=== PATIENT | female | born 1935 | race Caucasian/White ===

== ENCOUNTER 2018-09-15 11:41 | Emergency (ER) | payer MEDICARE, BC ==
[2018-09-15] MEDS ORDERED: Ondansetron 4 MG/2 ML SDV ONE ×2 (11:57→12:06)
[2018-09-15] MEDS ORDERED: Diltiazem 25 MG/5 ML SDV IVPUSH ONE (12:15)
[2018-09-15] MEDS ORDERED: Diltiazem 50 MG/10 ML SDV IVPUSH ONE (12:15)
[2018-09-15] MEDS ORDERED: Sodium Chloride 0.9% 1,000 ML IV SCH (12:15)
--- NOTE | 2018-09-15 12:32 | EDM.PDOC ---
ED HPI GENERAL MEDICAL PROBLEM - General Chief Complaint: General Stated Complaint: NAUSEA VOMITING Time Seen by Provider: 09/15/18 11:42 Source of Information: Reports: Patient, Family History Limitations: Reports: No Limitations - History of Present Illness INITIAL COMMENTS - FREE TEXT/NARRATIVE: This patient presents to the Ed in the care of daughter with a complaint of dizziness. She was comfortable at home and got up from her chair when she became dizzy. She also had some nausea at that time and subsequently had some vomiting as well. She was noted on arrival to be in atrial fibrillation. She had been well at home recently without fever, cough, nausea, and vomiting. Onset: Today, Sudden Location: Reports: Other (dizziness) Improves with: Reports: None Worsens with: Reports: Movement Associated Symptoms: Reports: Confusion, Diaphoresis - Related Data Allergies Allergy/AdvReac Type Severity Reaction Status Date / Time codeine Allergy Cannot Verified 04/04/15 21:32 Remember Home Meds: Home Meds NK [No Known Home Meds] 03/10/15 [History] ED ROS GENERAL - Review of Systems Review Of Systems: See Below Constitutional: Reports: No Symptoms, Diaphoresis. Denies: Fever HEENT: Reports: No Symptoms Respiratory: Reports: No Symptoms Cardiovascular: Reports: Blood Pressure Problem, Dyspnea on Exertion. Denies: Chest Pain, Edema, Syncope Endocrine: Reports: No Symptoms GI/Abdominal: Reports: Nausea, Vomiting. Denies: Decreased Appetite : Reports: No Symptoms Musculoskeletal: Reports: No Symptoms Skin: Reports: No Symptoms, Pallor, Diaphoresis Neurological: Reports: Dizziness ED EXAM, GENERAL - Physical Exam Exam: See Below Exam Limited By: No Limitations General Appearance: Alert, WD/WN, No Apparent Distress Eye Exam: Bilateral Eye: PERRL Ears: Normal External Exam Nose: Normal Inspection Throat/Mouth: Normal Inspection Head: Atraumatic, Normocephalic Neck: Supple, Non-Tender, Full Range of Motion Respiratory/Chest: Lungs Clear, Normal Breath Sounds, No Accessory Muscle Use, Chest Non-Tender Cardiovascular: Normal Peripheral Pulses (irregular rythmn with ectopy), No Edema GI/Abdominal: Soft, Non-Tender, No Organomegaly, Other (hypoactive bowel sounds) Extremities: Normal Range of Motion Neurological: Alert, Oriented Psychiatric: Normal Affect Skin Exam: Warm, Dry Course - Orders/Labs/Meds Orders: Active Orders 24 hr Category Date Time Status BASIC METABOLIC PANEL,BMP [CHEM] Stat Lab 09/15/18 12:23 Ordered CBC WITH AUTO DIFF [HEME] Stat Lab 09/15/18 12:23 Ordered MG [MAGNESIUM] [CHEM] Stat Lab 09/15/18 12:18 Ordered TROPONIN I [CHEM] Stat Lab 09/15/18 12:23 Ordered Sodium Chloride 0.9% [Normal Saline] 1,000 ml Med 09/15/18 12:15 Active IV ASDIRECTED Medication Orders Sodium Chloride (Normal Saline) 1,000 mls @ 125 mls/hr IV ASDIRECTED MARY Meds: Medications Generic Name Dose Route Start Last Admin Trade Name Freq PRN Reason Stop Dose Admin Sodium Chloride 1,000 mls @ 125 mls/hr 09/15/18 12:15 Normal Saline IV ASDIRECTED MARY Discontinued Medications Generic Name Dose Route Start Last Admin Trade Name Freq PRN Reason Stop Dose Admin Diltiazem HCl 20 mg 09/15/18 12:15 Diltiazem IVPUSH 09/15/18 12:16 ONETIME ONE Diltiazem HCl 27 mg 09/15/18 12:15 Cardizem IVPUSH 09/15/18 12:16 ONETIME ONE Ondansetron HCl Confirm 09/15/18 11:57 Zofran Administered 09/15/18 11:58 Dose 4 mg .ROUTE .STK-MED ONE Ondansetron HCl Confirm 09/15/18 12:06 Zofran Administered 09/15/18 12:07 Dose 4 mg .ROUTE .STK-MED ONE - Re-Assessments/Exams Free Text/Narrative Re-Assessment/Exam: 09/15/18 12:37 This patient presents to the ED for evaluation of dizziness. History and clinical findings are most consistent with atrial fibrillation. She was given an initial dose of Diltazem of 0.25 mg/kg (20 mg) which did not affect the rhythm. The Diltiazem was repeated at 0.35 mg/kg (27 mg) which did not affect her rhythm. A Diltazem drip of 10 mg/ hours was initiated along with maintenance fluids. I contacted [facility] and spoke with Dr. Barnett from Cardiology who did agree to accept this patient in transfer and to direct definitive care. Arrangements were made for ACLS are transfer with [facility]. 09/15/18 12:39 Departure - Departure Time of Disposition: 13:20 Disposition: DC/Tfer to Acute Hospital 02 Condition: Fair Clinical Impression: Atrial fibrillation - Discharge Information *PRESCRIPTION DRUG MONITORING PROGRAM REVIEWED*: Not Applicable *COPY OF PRESCRIPTION DRUG MONITORING REPORT IN PATIENT OSVALDO: Not Applicable Referrals: PCP,None [Primary Care Provider] - - My Orders Last 24 Hours: My Active Orders 09/15/18 12:15 Sodium Chloride 0.9% [Normal Saline] 1,000 ml IV ASDIRECTED 09/15/18 12:18 MG [MAGNESIUM] [CHEM] Stat 09/15/18 12:23 BASIC METABOLIC PANEL,BMP [CHEM] Stat CBC WITH AUTO DIFF [HEME] Stat TROPONIN I [CHEM] Stat - Assessment/Plan Last 24 Hours: My Active Orders 09/15/18 12:15 Sodium Chloride 0.9% [Normal Saline] 1,000 ml IV ASDIRECTED 09/15/18 12:18 MG [MAGNESIUM] [CHEM] Stat 09/15/18 12:23 BASIC METABOLIC PANEL,BMP [CHEM] Stat CBC WITH AUTO DIFF [HEME] Stat TROPONIN I [CHEM] Stat
[2018-09-15] MEDS ORDERED: Diltiazem 100 MG in Sodium Chloride 0.9% 100 ML IV SCH (12:45)
[2018-09-15] MEDS ORDERED: Promethazine 25 MG/ML SDV ONE (13:06)
[2018-09-15] MEDS ORDERED: LORazepam 2 MG/ML SDV IVPUSH ONE (13:25)
== END 2018-09-15 13:55 ==
LOC: LB.ED 11:41
DX: I48.91 Unspecified atrial fibrillation (principal); Z88.5 Allergy status to narcotic agent
CPT/HCPCS: 36415; 80048; 83735; 84484; 85025; 93005; 96374; 96375; 99284-25; J2405; J2550; J3490; J7030

== ENCOUNTER 2019-01-27 03:39 | Emergency (ER) | payer MEDICARE, BC ==
[2019-01-27] MEDS ORDERED: Sodium Chloride 0.9% 10 ML Syringe FLUSH PRN (04:41)
[2019-01-27] MEDS: Metoprolol Tartrate 25 MG Tab PO ONE (05:08)
[2019-01-27] MEDS: LORazepam 0.5 MG Tab PO ONE (05:19)
--- NOTE | 2019-01-27 05:20 | EDM.PDOC ---
ED HPI GENERAL MEDICAL PROBLEM - General Chief Complaint: General Stated Complaint: SHORTNESS OF BREATH, HIGH BP Time Seen by Provider: 01/27/19 04:50 Source of Information: Reports: Patient History Limitations: Reports: No Limitations - History of Present Illness INITIAL COMMENTS - FREE TEXT/NARRATIVE: This is a 83yo F brought in by EMS as she felt short of breath and couldn't feel her heartbeat. She denies chest pain but states she has a history of CT diagnosed back in September this year. She states she is on Xarelto and notices a change of he BM and urination. She states she couldn't feel her heartbeat and called her neighbor Ana who is a retired practitioner. She states she felt she needed someone next to her. She tried to do things to feel her heartbeat but she couldn't feel it. She denies any weakness, speech changes or visual changes (does have macular degeneration). Patient denies any prior episodes of this in the past. Onset: Sudden Duration: Other (Patient states her main concern was that she could not feel her heart...she doesn't feel it at this time as well on examination and history) Location: Reports: Generalized Improves with: Reports: None Worsens with: Reports: None Associated Symptoms: Reports: No Other Symptoms - Related Data Allergies Allergy/AdvReac Type Severity Reaction Status Date / Time codeine Allergy Cannot Verified 01/27/19 05:23 Remember Home Meds: Home Meds Metoprolol Tartrate 12.5 mg PO BID 01/27/19 [History] Rivaroxaban [Xarelto] 20 mg PO DAILY 01/27/19 [History] ED ROS GENERAL - Review of Systems Review Of Systems: ROS reveals no pertinent complaints other than HPI. ED EXAM, GENERAL - Physical Exam Exam: See Below Exam Limited By: No Limitations General Appearance: Alert, WD/WN, Anxious Eye Exam: Bilateral Eye: EOMI, PERRL Ears: Normal External Exam Nose: Normal Inspection Throat/Mouth: Normal Inspection Head: Atraumatic, Normocephalic Neck: Normal Inspection, Supple, Non-Tender Respiratory/Chest: No Respiratory Distress Cardiovascular: Normal Peripheral Pulses Peripheral Pulses: 2+: Dorsalis Pedis (L), Dorsalis Pedis (R) GI/Abdominal: Normal Bowel Sounds Back Exam: Normal Inspection Extremities: Normal Inspection Neurological: Alert, Oriented, CN II-XII Intact, Normal Cognition, Normal Gait, Normal Reflexes, No Motor/Sensory Deficits Psychiatric: Normal Affect, Anxious Skin Exam: Warm, Dry, Intact Course - Vital Signs Last Recorded V/S: Last Vital Signs Temp 36.7 C 01/27/19 04:50 Pulse 65 01/27/19 06:28 Resp 18 01/27/19 06:28 BP 134/62 01/27/19 06:28 Pulse Ox 97 01/27/19 06:28 - Orders/Labs/Meds Orders: Active Orders 24 hr Category Date Time Status EKG Documentation Completion [RC] ASDIRECTED Care 01/27/19 04:41 Active Peripheral IV Insertion Adult [OM.PC] Routine Oth 01/27/19 04:41 Ordered Labs: Laboratory Tests 01/27/19 01/27/19 Range/Units 04:55 04:55 WBC 6.8 D (4.0-11.0) K/uL RBC 4.09 (3.80-5.80) M/uL Hgb 12.9 (11.5-16.5) g/dL Hct 38.9 (37.0-47.0) % MCV 95 (76-96) fL MCH 31.5 (27.0-32.0) pg MCHC 33.2 (31.0-35.0) g/dL RDW 13.7 (11.0-16.0) % Plt Count 172 (150-500) K/uL MPV 10.4 H (6.0-10.0) fL Neut % (Auto) 69.8 (45.0-70.0) % Lymph % (Auto) 15.8 L (20.0-40.0) % Lassen % (Auto) 10.7 H (3.0-10.0) % Eos % (Auto) 3.1 (1.0-5.0) % Baso % (Auto) 0.6 H (0.0-0.5) % Neut # (Auto) 4.77 (2.00-7.50) K/uL Lymph # (Auto) 1.08 L (1.50-4.00) K/uL Lassen # (Auto) 0.73 (0.20-0.80) K/uL Eos # (Auto) 0.21 (0.04-0.40) K/uL Baso # (Auto) 0.04 (0.02-0.10) K/uL Sodium 143 (136-145) mmol/L Potassium 3.6 (3.5-5.1) mmol/L Chloride 103 (98-107) mmol/L Carbon Dioxide 30.6 D (21.0-32.0) mmol/L Anion Gap 13.0 (5.0-15.0) mmol/L BUN 17 (8-26) mg/dL Creatinine 0.88 (0.55-1.02) mg/dL Est Cr Clr Drug Dosing 49.73 mL/min Estimated GFR (MDRD) > 60 (>60) MLS/MIN BUN/Creatinine Ratio 19.3 (6-25) Glucose 105 H (74-100) mg/dL Calcium 9.1 (8.5-10.1) mg/dL Total Bilirubin 0.6 (0.0-1.0) mg/dL AST 25 (15-37) U/L ALT 23 (12-78) U/L Alkaline Phosphatase 69 (46-116) U/L Troponin I < 0.017 (0.000-0.060) ng/mL B-Natriuretic Peptide 1377 H (0-450) pg/mL Total Protein 7.3 (6.4-8.2) g/dL Albumin 3.6 (3.4-5.0) g/dL Globulin 3.7 (2.2-4.2) g/dL Albumin/Globulin Ratio 1.0 (0.8-2.0) Meds: Medications Discontinued Medications Generic Name Dose Route Start Last Admin Trade Name Freq PRN Reason Stop Dose Admin Lorazepam 0.5 mg 01/27/19 05:24 01/27/19 05:19 Ativan PO 01/27/19 05:25 0.5 mg ONETIME ONE Administration Metoprolol Tartrate 12.5 mg 01/27/19 05:24 01/27/19 05:08 Lopressor PO 01/27/19 05:25 12.5 mg ONETIME ONE Administration Sodium Chloride 10 ml 01/27/19 04:41 Saline Flush FLUSH ASDIRECTED PRN Keep Vein Open Departure - Departure Time of Disposition: 06:45 Disposition: Home, Self-Care 01 Condition: Good Clinical Impression: Palpitations Atrial fibrillation Qualifiers: Atrial fibrillation type: chronic Qualified Code(s): I48.2 - Chronic atrial fibrillation - Discharge Information Instructions: Metoprolol tablets, Rivaroxaban oral tablets, Hypertension, Easy- to-Read Referrals: PCP,None [Primary Care Provider] - Forms: ED Department Discharge Additional Instructions: Discharge home. Follow up in the clinic within 1 week. Metoprolol 25mg by mouth 2 times a day. Call or return to the clinic or ER if you have any questions or concerns. - Problem List & Annotations (1) Atrial fibrillation SNOMED Code(s): 79020662 Code(s): I48.91 - UNSPECIFIED ATRIAL FIBRILLATION Status: Chronic Priority: High Qualifiers: Atrial fibrillation type: chronic Qualified Code(s): I48.2 - Chronic atrial fibrillation (2) Palpitations SNOMED Code(s): 14278134 Code(s): R00.2 - PALPITATIONS Status: Acute Priority: High - Problem List Review Problem List Initiated/Reviewed/Updated: Yes - My Orders Last 24 Hours: My Active Orders 01/27/19 04:41 EKG Documentation Completion [RC] ASDIRECTED Peripheral IV Insertion Adult [OM.PC] Routine - Assessment/Plan Last 24 Hours: My Active Orders 01/27/19 04:41 EKG Documentation Completion [RC] ASDIRECTED Peripheral IV Insertion Adult [OM.PC] Routine Plan: Counseled on no prior heart attack in the past. Patient states she was told she did back in September when she was transferred to [facility]. Discussed discharge notes and progress notes with patient. She appears confused as she believed she had a heart attack back then. Discussed recent results and that there is no indication of heart concerns except for atrial fibrillation and HTN today. Patient counseled on increase of metoprolol as patient states her daughter doesn 't want her on Lisinopril which was d/c'd by [facility]. Counseled on the need for f/u in clinic in 1 week for recheck BP and heart concerns.
[2019-01-27 06:34] VITALS: BP 134/62
== END 2019-01-27 06:40 | disposition home or self-care (01) ==
LOC: LB.ED 03:39
DX: I48.2 Chronic atrial fibrillation (principal); Z88.5 Allergy status to narcotic agent; Z79.899 Other long term (current) drug therapy
CPT/HCPCS: 36415; 80053; 83880; 84484; 85025; 93005; 99284; 99285-25; A0425; A0429; A9270-GY

== ENCOUNTER 2021-09-17 12:39 | Emergency (ER) | payer MEDICARE ==
[2021-09-17] MEDS: Furosemide 40 MG/4 ML VIAL IVPUSH ONE (17:42)
[2021-09-17] MEDS: Furosemide 20 MG/2 ML VIAL ONE (18:32)
[2021-09-17 20:56] VITALS: BP 127/76; PULSE 97
== END 2021-09-17 21:00 | disposition home or self-care (01) ==
LOC: LB.ED 12:39
DX: D50.0 Iron deficiency anemia secondary to blood loss (chronic) (principal); I48.91 Unspecified atrial fibrillation; I50.9 Heart failure, unspecified; Z88.5 Allergy status to narcotic agent; Z79.01 Long term (current) use of anticoagulants
CPT/HCPCS: 36415; 36430; 80053; 85014; 85018; 85025; 86850; 86900; 86901; 86920; 86922; 96374; 99283; 99283-25; J1940; P9016

== ENCOUNTER 2021-09-19 10:27 | Observation (INO) | payer MEDICARE ==
[2021-09-19] MEDS ORDERED: HYDROmorphone 2 MG/ML SDV IVPUSH ONE ×2 (10:45→11:02)
[2021-09-19] MEDS ORDERED: Docusate Sodium 100 MG Cap PO PRN (13:42)
[2021-09-19] MEDS ORDERED: Acetaminophen/Codeine 300-30 MG Tab PO PRN (13:42)
[2021-09-19] MEDS ORDERED: Acetaminophen/HYDROcodone 325-5 MG Tab PO PRN (14:04)
[2021-09-19] MEDS: Ferrous Sulfate 325 MG Tab PO SCH (18:13)
[2021-09-19] MEDS ORDERED: Metoprolol Tartrate 25 MG Tab PO SCH (20:00)
[2021-09-19] MEDS: Metoprolol Tartrate 25 MG Tab PO SCH (20:01)
[2021-09-19] MEDS: Acetaminophen 650 MG Tab.ER PO SCH (20:02)
[2021-09-19] MEDS: oxyCODONE 5 MG Tab PO PRN (21:21)
[2021-09-20] MEDS: Acetaminophen 650 MG Tab.ER PO SCH ×3 (02:18→08:32)
[2021-09-20] MEDS ORDERED: Furosemide 20 MG Tab PO SCH (08:00)
[2021-09-20] MEDS ORDERED: Furosemide 20 MG Tab **OWN MED PO SCH (08:00)
[2021-09-20] MEDS ORDERED: Furosemide 40 MG Tab PO SCH (08:00)
[2021-09-20] MEDS: oxyCODONE 5 MG Tab PO PRN (08:22)
[2021-09-20] MEDS: Ferrous Sulfate 325 MG Tab PO SCH (08:33)
[2021-09-20] MEDS ORDERED: Furosemide 20 MG Tab ONE (08:34)
[2021-09-20] MEDS: Metoprolol Tartrate 25 MG Tab PO SCH (08:35)
[2021-09-20 08:37] VITALS: BP 131/72; PULSE 94
== END 2021-09-20 10:18 ==
LOC: LB.ED 10:27 → LB.MS 13:22
PROVIDERS: ADMIT Physician Assistant; ATTEND Physician Assistant
DX: M16.11 Unilateral primary osteoarthritis, right hip (principal); G89.29 Other chronic pain; D64.9 Anemia, unspecified; I48.91 Unspecified atrial fibrillation; Z79.01 Long term (current) use of anticoagulants
CPT/HCPCS: 36415; 73502-RT; 73700-RT; 80053; 85025; 85610; 96374; 99285-25; A0425; A0429; A9270-GY; G0378; J1170; U0002